=== PATIENT | male | born 1970 | race Caucasian/White ===

== ENCOUNTER 2024-07-13 09:43 | Inpatient (IN) | payer BC ==
[~2024-07-13] VITALS: Ht 185.4 cm; Wt 70.3 kg
[2024-07-13] MEDS ORDERED: CALCITRIOL0.5 MCG (10:06)
[2024-07-13 10:07] LABS: BASOPHILS # (AUTO) 0.1 (0.0-0.1); BASOPHILS % 0.9 % (0.0-1.0); EOSINOPHILS # (AUTO) 0.2 (0.0-0.4); EOSINOPHILS % 2.5 % (0.0-6.0); HEMATOCRIT 47.1 % (38.2-49.6); HEMOGLOBIN 15.5 g/dL (14.0-18.0); LYMPHOCYTES # (AUTO) 2.3 (1.0-3.2); MEAN CORPUSCULAR HEMOGLOBIN 32.4 pg (28-32); MEAN CORPUSCULAR HGB CONC 32.9 g/dL (31-35); MEAN CORPUSCULAR VOLUME 98.3 fL (81-99); MONOCYTES # (AUTO) 0.8 (0.2-0.8); MONOCYTES % 7.7 % (4.4-11.3); NEUTROPHILS # (AUTO) 6.3 (2.1-6.9); NEUTROPHILS % 64.7 % (38.7-80.0); PLATELET COUNT 269 x10e3/uL (140-360); RED BLOOD COUNT 4.79 x10e6/uL (4.3-5.7); RED CELL DISTRIBUTION WIDTH 13.5 % (11.7-14.4); WHITE BLOOD COUNT 9.69 x10e3/uL (4.8-10.8)
[2024-07-13 10:20] LABS: INR 1.04; PROTHROMBIN TIME 14.2 seconds (11.9-14.5)
[2024-07-13 10:23] LABS: PARTIAL THROMBOPLASTIN TIME 29.8 seconds (23.8-35.5)
[2024-07-13] MEDS: SODIUM CHLORIDE 0.9% 1000ML 1,000 ML IV STA (10:28)
[2024-07-13] MEDS: METHYLPREDNISOLONE SOD SUCC 125 MG/2ML VIAL IV STA (10:29)
[2024-07-13] MEDS: KETOROLAC TROMETHAMINE 30 MG/ML VIAL IV STA (10:30)
[2024-07-13] MEDS: DIAZEPAM INJ 5 MG/ML 2 ML IV ONE (10:30)
[2024-07-13 10:42] LABS: ALBUMIN 3.3 g/dL (3.5-5.0); ALBUMIN/GLOBULIN RATIO 0.9 (0.8-2.0); ANION GAP 23.4 mmol/L (8-16); CREATININE, SERUM 0.86 mg/dL (0.72-1.25); MAGNESIUM 1.2 MG/DL (1.3-2.1); TOTAL PROTEIN 6.9 g/dL (6.5-8.1)
[2024-07-13 10:43] LABS: POTASSIUM 3.4 mmol/L (3.5-5.1)
[2024-07-13 10:45] LABS: CALCIUM 6.2 mg/dL (8.4-10.2)
[2024-07-13 10:48] LABS: TROPONIN I 0.015 ng/mL (0-0.300)
[2024-07-13] MEDS: MAGNESIUM SULFATE 2GM/50ML 50 ML IV ONE (11:09)
[2024-07-13] MEDS: CALCIUM GLUC 1 G/50 ML NACL 50 ML IV SCH (11:12)
[2024-07-13] MEDS: SODIUM CHLORIDE 0.9% 1000ML 1,000 ML IV SCH (12:24)
[2024-07-13] MEDS: ONDANSETRON HCL INJ 2MG/ML 2ML 2 MG/ML VIAL IV PRN (12:29)
[2024-07-13] MEDS: LORAZEPAM INJ 2 MG/ML VIAL IV PRN (12:29)
[2024-07-13 13:59] LABS: CLARITY,URINE CLEAR (CLEAR); COLOR,URINE YELLOW (YELLOW); GLUCOSE, URINE NEGATIVE (NEGATIVE); KETONES,URINE 1+ (NEGATIVE); LEUKOCYTE ESTERASE ,URINE NEGATIVE (NEGATIVE); NITRITE,URINE NEGATIVE (NEGATIVE); PH,URINE 6 (5 - 7); PROTEIN,URINE DIPSTICK NEGATIVE (NEGATIVE)
[2024-07-13 14:00] LABS: BILIRUBIN,URINE NEGATIVE (NEGATIVE); URINE UROBILINOGEN 0.2 mg/dL (0.2 - 1)
[2024-07-13 14:05] LABS: BACTERIA,URINE FEW /HPF; EPITHELIAL CELLS,URINE FEW /LPF; RBC,URINE 0-5 /HPF (0-5)
[2024-07-13] MEDS: CALCIUM CARBONATE 500 MG CHEWABLE TABS PO SCH (17:00)
[2024-07-13 19:16] VITALS: PULSE 79; RESP 18; TEMP 98.1
[2024-07-13 20:05] VITALS: BP 160/94; PULSE 77; RESP 20; TEMP 97.9; O2SAT 97
[2024-07-13 21:00] VITALS: BP 160/94; PULSE 77; RESP 20; TEMP 97.9; O2SAT 97
[2024-07-14] VITALS: BP 143/74; PULSE 87; RESP 20; TEMP 97.6; O2SAT 97
[2024-07-14 03:41] LABS: TROPONIN I 0.011 ng/mL (0-0.300)
[2024-07-14 04:00] VITALS: BP 126/86; PULSE 70; RESP 20; TEMP 98.1; O2SAT 99
[2024-07-14 05:23] LABS: BASOPHILS % 0.4 % (0.0-1.0); EOSINOPHILS % 0.2 % (0.0-6.0); HEMATOCRIT 42.8 % (38.2-49.6); LYMPHOCYTES % 17.5 % (18.0-39.1); MEAN CORPUSCULAR HEMOGLOBIN 32.2 pg (28-32); MEAN CORPUSCULAR HGB CONC 32.7 g/dL (31-35); MEAN CORPUSCULAR VOLUME 98.4 fL (81-99); NEUTROPHILS # (AUTO) 8.3 (2.1-6.9); NEUTROPHILS % 72.6 % (38.7-80.0); PLATELET COUNT 244 x10e3/uL (140-360); RED BLOOD COUNT 4.35 x10e6/uL (4.3-5.7); RED CELL DISTRIBUTION WIDTH 13.4 % (11.7-14.4); WHITE BLOOD COUNT 11.39 x10e3/uL (4.8-10.8)
[2024-07-14 06:01] LABS: ALBUMIN 2.5 g/dL (3.5-5.0); ALBUMIN/GLOBULIN RATIO 0.9 (0.8-2.0); ANION GAP 14.8 mmol/L (8-16); BILIRUBIN,TOTAL 0.4 mg/dL (0.2-1.2); CREATININE, SERUM 0.84 mg/dL (0.72-1.25); MAGNESIUM 1.4 MG/DL (1.3-2.1); TOTAL PROTEIN 5.3 g/dL (6.5-8.1)
[2024-07-14 06:10] LABS: CALCIUM 5.4 mg/dL (8.4-10.2); POTASSIUM 2.8 mmol/L (3.5-5.1)
[2024-07-14 08:12] VITALS: BP 136/74; PULSE 69; RESP 18; TEMP 97.9; O2SAT 99
[2024-07-14 08:15] VITALS: BP 126/52; PULSE 78; RESP 18; TEMP 99.5; O2SAT 97
[2024-07-14] MEDS: MULTIVITAMINS/MINERALS TAB PO SCH (08:48)
[2024-07-14 10:53] LABS: TROPONIN I 0.002 ng/mL (0-0.300)
[2024-07-14 11:53] LABS: ABG HCO3 24 mmol/L (22-26); ABG PCO2 42 mmHg (35-45); ABG PH 7.37 (7.35-7.45); ABG PO2 44 mmHg (80-105); ABG TCO2 26
[2024-07-14] MEDS: CALCITRIOL 0.25 MCG CAP PO SCH (12:11)
[2024-07-14] MEDS: POTASSIUM CHLORIDE 20 MEQ TAB CR PO ONE (12:11)
[2024-07-14 13:04] VITALS: BP 140/88; PULSE 68; RESP 18; TEMP 98; O2SAT 100
[2024-07-14] MEDS: CALCIUM GLUC 1 G/50 ML NACL 50 ML IV SCH (14:00)
[2024-07-14] MEDS: POTASSIUM CHLORIDE 20MEQ/100ML 100 ML IV SCH (14:11)
[2024-07-14 20:00] VITALS: BP 144/88; PULSE 64; RESP 16; TEMP 97.9; O2SAT 97
[2024-07-15] VITALS (8 sets, daily range): BP systolic 128–174; BP diastolic 78–99; PULSE 52–71; RESP 17–20; TEMP 97.6–98.3; O2SAT 93–97
[2024-07-15 05:09] LABS: BASOPHILS # (AUTO) 0.1 (0.0-0.1); BASOPHILS % 0.7 % (0.0-1.0); EOSINOPHILS # (AUTO) 0.3 (0.0-0.4); EOSINOPHILS % 3.1 % (0.0-6.0); HEMATOCRIT 38.7 % (38.2-49.6); HEMOGLOBIN 13.1 g/dL (14.0-18.0); LYMPHOCYTES # (AUTO) 2.4 (1.0-3.2); LYMPHOCYTES % 29.2 % (18.0-39.1); MEAN CORPUSCULAR HEMOGLOBIN 32.1 pg (28-32); MEAN CORPUSCULAR HGB CONC 33.9 g/dL (31-35); MEAN CORPUSCULAR VOLUME 94.9 fL (81-99); MONOCYTES # (AUTO) 0.7 (0.2-0.8); MONOCYTES % 8.7 % (4.4-11.3); NEUTROPHILS # (AUTO) 4.7 (2.1-6.9); NEUTROPHILS % 58.1 % (38.7-80.0); PLATELET COUNT 238 x10e3/uL (140-360); RED BLOOD COUNT 4.08 x10e6/uL (4.3-5.7); RED CELL DISTRIBUTION WIDTH 14.1 % (11.7-14.4); WHITE BLOOD COUNT 8.15 x10e3/uL (4.8-10.8)
[2024-07-15 05:43] LABS: ALBUMIN 2.6 g/dL (3.5-5.0); ANION GAP 15.2 mmol/L (8-16); BILIRUBIN,TOTAL 0.4 mg/dL (0.2-1.2); CREATININE, SERUM 0.84 mg/dL (0.72-1.25); TOTAL PROTEIN 5.2 g/dL (6.5-8.1)
[2024-07-15 05:49] LABS: POTASSIUM 3.2 mmol/L (3.5-5.1)
[2024-07-15 05:58] LABS: CALCIUM 5.5 mg/dL (8.4-10.2)
[2024-07-15] MEDS: POTASSIUM CHLORIDE 20 MEQ TAB CR PO ONE (12:46)
[2024-07-15] MEDS: SODIUM CHLORIDE 0.9% IV SCH (14:48)
[2024-07-15] MEDS: CALCIUM GLUCONATE IV SCH (14:48)
[2024-07-15] MEDS: CALCIUM CARBONATE 500 MG CHEWABLE TABS PO SCH (14:48)
[2024-07-16 04:00] VITALS: BP 140/86; PULSE 60; RESP 18; TEMP 98.1; O2SAT 97
[2024-07-16 05:59] LABS: BASOPHILS # (AUTO) 0.1 (0.0-0.1); BASOPHILS % 0.6 % (0.0-1.0); EOSINOPHILS # (AUTO) 0.3 (0.0-0.4); EOSINOPHILS % 2.8 % (0.0-6.0); HEMATOCRIT 39.8 % (38.2-49.6); HEMOGLOBIN 13.5 g/dL (14.0-18.0); LYMPHOCYTES % 21.1 % (18.0-39.1); MEAN CORPUSCULAR HGB CONC 33.9 g/dL (31-35); MEAN CORPUSCULAR VOLUME 94.3 fL (81-99); MONOCYTES # (AUTO) 0.8 (0.2-0.8); MONOCYTES % 8.9 % (4.4-11.3); NEUTROPHILS # (AUTO) 6.3 (2.1-6.9); NEUTROPHILS % 66.3 % (38.7-80.0); PLATELET COUNT 262 x10e3/uL (140-360); RED BLOOD COUNT 4.22 x10e6/uL (4.3-5.7); RED CELL DISTRIBUTION WIDTH 14.4 % (11.7-14.4); WHITE BLOOD COUNT 9.49 x10e3/uL (4.8-10.8)
[2024-07-16 06:21] LABS: ANION GAP 15.3 mmol/L (8-16); CREATININE, SERUM 0.81 mg/dL (0.72-1.25)
[2024-07-16 06:26] LABS: POTASSIUM 3.3 mmol/L (3.5-5.1)
[2024-07-16 06:28] LABS: CALCIUM 6.3 mg/dL (8.4-10.2)
[2024-07-16 08:00] VITALS: BP 140/86; PULSE 60; RESP 18; TEMP 98.1; O2SAT 97
[2024-07-16 08:52] VITALS: BP 158/88; PULSE 53; RESP 20; TEMP 98.1; O2SAT 98
[2024-07-16] MEDS: SODIUM CHLORIDE 0.9% IV SCH ×2 (11:18→18:15)
[2024-07-16] MEDS: CALCIUM GLUCONATE IV SCH ×2 (11:18→18:15)
[2024-07-16 11:59] VITALS: BP 172/91; PULSE 46; RESP 20; TEMP 97.6; O2SAT 98
[2024-07-16 13:10] LABS: CALCIUM 8.4 mg/dL (8.7-10.2)
[2024-07-16] MEDS ORDERED: POTASSIUM CHLORIDE 20 MEQ TAB CR PO STA (15:32)
[2024-07-16 16:12] VITALS: BP 169/92; PULSE 84; RESP 18; TEMP 97.7; O2SAT 98
[2024-07-16] MEDS: POTASSIUM BICARBONATE/CIT AC 20 MEQ TABLET.EFF PO ONE (16:15)
[2024-07-16] MEDS: MAGNESIUM SULFATE 2GM/50ML 50 ML IV ONE (16:15)
[2024-07-16 16:55] LABS: CORONAVIRUS COVID-19 AG NEGATIVE (NEGATIVE); INFLUENZA A AG NEGATIVE (NEGATIVE); INFLUENZA B AG NEGATIVE (NEGATIVE)
[2024-07-16 20:00] VITALS: BP 151/87; PULSE 51; RESP 16; TEMP 97.4; O2SAT 95
[2024-07-16] MEDS: CALCIUM CARBONATE 500 MG CHEWABLE TABS PO SCH (21:41)
[2024-07-16] MEDS: CALCITRIOL 0.25 MCG CAP PO SCH (21:41)
[2024-07-17] VITALS: BP_SYST 137; BP_SYST 142; BP_DIAS 60; BP_DIAS 78; PULSE 55; PULSE 89; RESP 18; RESP 19; TEMP 97.4; TEMP 98.1; O2SAT 94; O2SAT 96
[2024-07-17 04:00] VITALS: BP 144/75; PULSE 52; RESP 18; TEMP 98.7; O2SAT 94
[2024-07-17 06:26] LABS: ANION GAP 16.3 mmol/L (8-16); CREATININE, SERUM 0.79 mg/dL (0.72-1.25); MAGNESIUM 1.3 MG/DL (1.3-2.1)
[2024-07-17 06:27] LABS: POTASSIUM 3.3 mmol/L (3.5-5.1)
[2024-07-17 06:29] LABS: CALCIUM 6.8 mg/dL (8.4-10.2)
[2024-07-17 07:55] VITALS: BP 144/75; PULSE 52; RESP 18; TEMP 98.7; O2SAT 94
[2024-07-17 08:19] VITALS: BP 177/90; PULSE 57; RESP 17; TEMP 98.4; O2SAT 95
[2024-07-17] MEDS: POTASSIUM CHLORIDE 20 MEQ TAB CR PO ONE (11:13)
[2024-07-17 12:08] VITALS: BP 174/90; PULSE 61; RESP 17; TEMP 98; O2SAT 97
[2024-07-17] MEDS: HYDRALAZINE HCL 20 MG/ML VIAL IV PRN (13:17)
[2024-07-17] MEDS: SODIUM CHLORIDE 0.9% IV SCH (18:52)
[2024-07-17] MEDS: CALCIUM GLUCONATE IV SCH (18:52)
[2024-07-17 23:09] VITALS: BP 160/92; PULSE 57; RESP 18; TEMP 98.4; O2SAT 100
[2024-07-18 05:39] VITALS: BP 145/83; PULSE 60; RESP 20; TEMP 98.4; O2SAT 96
[2024-07-18 06:23] LABS: ANION GAP 18.1 mmol/L (8-16); CALCIUM 7.3 mg/dL (8.4-10.2); CREATININE, SERUM 0.75 mg/dL (0.72-1.25); MAGNESIUM 1.2 MG/DL (1.3-2.1)
[2024-07-18 06:26] LABS: POTASSIUM 3.1 mmol/L (3.5-5.1)
[2024-07-18 07:15] LABS: ABG HCO3 24 mmol/L (22-26); ABG PCO2 36 mmHg (35-45); ABG PH 7.42 (7.35-7.45); ABG PO2 97 mmHg (80-105); ABG TCO2 25
[2024-07-18 07:15] LABS: ABG HCO3 25 mmol/L (22-26); ABG PCO2 38 mmHg (35-45); ABG PH 7.43 (7.35-7.45); ABG PO2 61 mmHg (80-105); ABG TCO2 27
[2024-07-18 08:51] VITALS: BP 158/82; PULSE 63; RESP 18; TEMP 98.3; O2SAT 98
[2024-07-18 10:51] VITALS: BP 158/82; PULSE 63; RESP 18; TEMP 98.3; O2SAT 98
[2024-07-18 11:52] VITALS: BP 175/87; PULSE 56; RESP 17; TEMP 98.2; O2SAT 96
[2024-07-18] MEDS ORDERED: CALCITRIOL0.5 MCG PO (12:41)
[2024-07-18] MEDS ORDERED: MAG-OXIDE200 MG PO (12:41)
[2024-07-18] MEDS ORDERED: CALCIUM CITRAT250 MG PO (12:41)
[2024-07-19 07:34] LABS: ABG HCO3 26 mmol/L (22-26); ABG PCO2 40 mmHg (35-45); ABG PH 7.43 (7.35-7.45); ABG PO2 103 mmHg (80-105); ABG TCO2 27
== END 2024-07-18 14:00 | disposition home or self-care (01) | DRG 645 ==
LOC: ER 09:50 → ERHOLD 11:34 → MED/SURG 19:54
PROVIDERS: ADMIT Internal Medicine; ATTEND Internal Medicine
PROC: 4A033R1 Measurement of Arterial Saturation, Peripheral, Percutaneous Approach (ICD-10-PCS; principal; 2024-07-13)
PROC: 4A033R1 Measurement of Arterial Saturation, Peripheral, Percutaneous Approach (ICD-10-PCS; 2024-07-16)
PROC: 4A033R1 Measurement of Arterial Saturation, Peripheral, Percutaneous Approach (ICD-10-PCS; 2024-07-17)
PROC: 4A033R1 Measurement of Arterial Saturation, Peripheral, Percutaneous Approach (ICD-10-PCS; 2024-07-18)
DX: E20.9 Hypoparathyroidism, unspecified (principal); E87.6 Hypokalemia; R25.2 Cramp and spasm; L40.9 Psoriasis, unspecified; R74.8 Abnormal levels of other serum enzymes; F17.200 Nicotine dependence, unspecified, uncomplicated; F10.10 Alcohol abuse, uncomplicated; Z11.52 Encounter for screening for COVID-19; Z71.81 Spiritual or religious counseling; Z79.899 Other long term (current) drug therapy
CPT/HCPCS: 36415; 71045; 80048; 80053; 81001; 82550; 82805; 83519; 83735; 83970; 84100; 84484; 85025; 85610; 85730; 93005; 99284; J0360; J0612; J1885; J2060; J2405; J2919; J3360; J3475; J3480; J7030; J7040

== ENCOUNTER 2024-08-24 09:54 | Inpatient (IN) | payer BC ==
[~2024-08-24] VITALS: Ht 185.4 cm; Wt 70.3 kg
[~2024-08-24 09:54] MED LIST: CALCITRIOL0.5 MCG; CALCITRIOL0.5 MCG PO; CALCIUM CITRAT250 MG PO; MAG-OXIDE200 MG PO
[2024-08-24 10:57] LABS: BASOPHILS # (AUTO) 0.1 (0.0-0.1); BASOPHILS % 0.7 % (0.0-1.0); EOSINOPHILS # (AUTO) 0.3 (0.0-0.4); HEMATOCRIT 45.8 % (38.2-49.6); HEMOGLOBIN 15.5 g/dL (14.0-18.0); LYMPHOCYTES # (AUTO) 2.5 (1.0-3.2); LYMPHOCYTES % 25.2 % (18.0-39.1); MEAN CORPUSCULAR HEMOGLOBIN 31.5 pg (28-32); MEAN CORPUSCULAR HGB CONC 33.8 g/dL (31-35); MEAN CORPUSCULAR VOLUME 93.1 fL (81-99); MONOCYTES # (AUTO) 0.8 (0.2-0.8); MONOCYTES % 8.5 % (4.4-11.3); NEUTROPHILS # (AUTO) 6.1 (2.1-6.9); NEUTROPHILS % 62.3 % (38.7-80.0); PLATELET COUNT 323 x10e3/uL (140-360); RED BLOOD COUNT 4.92 x10e6/uL (4.3-5.7); RED CELL DISTRIBUTION WIDTH 13.4 % (11.7-14.4); WHITE BLOOD COUNT 9.85 x10e3/uL (4.8-10.8)
[2024-08-24 11:05] LABS: INR 0.83; PROTHROMBIN TIME 11.9 seconds (11.9-14.5)
[2024-08-24 11:07] LABS: PARTIAL THROMBOPLASTIN TIME 28.3 seconds (23.8-35.5)
[2024-08-24 11:16] LABS: ALBUMIN 3.7 g/dL (3.5-5.0); ANION GAP 17.5 mmol/L (8-16); BILIRUBIN,TOTAL 0.5 mg/dL (0.2-1.2); CREATININE, SERUM 2.45 mg/dL (0.72-1.25); MAGNESIUM 1.8 MG/DL (1.3-2.1); TOTAL PROTEIN 7.4 g/dL (6.5-8.1)
[2024-08-24 11:21] LABS: CALCIUM 13.2 mg/dL (8.4-10.2); POTASSIUM 2.5 mmol/L (3.5-5.1)
[2024-08-24] MEDS: SODIUM CHLORIDE 0.9% 1000ML 1,000 ML IV STA (11:31)
[2024-08-24] MEDS: POTASSIUM CHLORIDE 10MEQ/100ML 300 ML IV ONE (11:45)
[2024-08-24] MEDS: POTASSIUM CHLORIDE 20 MEQ TAB CR PO STA (11:45)
[2024-08-24 11:58] LABS: THYROID STIMULATING HORMONE 1.828 uIU/mL (0.350-4.940)
[2024-08-24] MEDS ORDERED: ONDANSETRON HCL INJ 2MG/ML 2ML 2 MG/ML VIAL IV PRN (12:00)
[2024-08-24] MEDS: SODIUM CHLORIDE 0.9% 1000ML 1,000 ML IV SCH (14:47)
[2024-08-24 16:00] VITALS: PULSE 71; RESP 16; TEMP 98.1
[2024-08-24 20:27] VITALS: BP 154/86; PULSE 56; RESP 17; TEMP 98; O2SAT 98
[2024-08-25] VITALS (8 sets, daily range): BP systolic 142–151; BP diastolic 78–89; PULSE 51–60; RESP 16–20; TEMP 97.3–99; O2SAT 98–100
[2024-08-25 07:24] LABS: BASOPHILS # (AUTO) 0.1 (0.0-0.1); EOSINOPHILS # (AUTO) 0.6 (0.0-0.4); EOSINOPHILS % 7.7 % (0.0-6.0); HEMATOCRIT 41.3 % (38.2-49.6); LYMPHOCYTES % 39.1 % (18.0-39.1); MEAN CORPUSCULAR HEMOGLOBIN 31.8 pg (28-32); MEAN CORPUSCULAR HGB CONC 33.9 g/dL (31-35); MEAN CORPUSCULAR VOLUME 93.9 fL (81-99); MONOCYTES # (AUTO) 0.6 (0.2-0.8); MONOCYTES % 8.4 % (4.4-11.3); NEUTROPHILS # (AUTO) 3.3 (2.1-6.9); NEUTROPHILS % 43.5 % (38.7-80.0); PLATELET COUNT 278 x10e3/uL (140-360); RED CELL DISTRIBUTION WIDTH 13.5 % (11.7-14.4); WHITE BLOOD COUNT 7.65 x10e3/uL (4.8-10.8)
[2024-08-25 07:50] LABS: ALBUMIN 2.9 g/dL (3.5-5.0); BILIRUBIN,TOTAL 0.7 mg/dL (0.2-1.2); CALCIUM 10.7 mg/dL (8.4-10.2); CREATININE, SERUM 2.04 mg/dL (0.72-1.25); TOTAL PROTEIN 5.9 g/dL (6.5-8.1)
[2024-08-25 08:34] LABS: ABG HCO3 37 mmol/L (22-26); ABG PCO2 60 mmHg (35-45); ABG PO2 31 mmHg (80-105); ABG TCO2 39
[2024-08-25] MEDS: POTASSIUM CHLORIDE 20 MEQ TAB CR PO SCH (11:27)
[2024-08-25 15:37] LABS: CALCIUM 12.9 mg/dL (8.7-10.2)
[2024-08-25] MEDS: CALCITRIOL 0.25 MCG CAP PO SCH (15:56)
[2024-08-25] MEDS: FAMOTIDINE 20 MG TAB PO SCH (21:11)
[2024-08-26] VITALS: BP 148/81; PULSE 54; RESP 17; TEMP 98.1; O2SAT 99
[2024-08-26 04:00] VITALS: BP 158/82; PULSE 61; RESP 18; TEMP 97.6; O2SAT 98
[2024-08-26 06:39] LABS: ANION GAP 11.1 mmol/L (8-16); CALCIUM 10.1 mg/dL (8.4-10.2); CREATININE, SERUM 1.77 mg/dL (0.72-1.25); PHOSPHORUS 2.7 MG/DL (2.3-4.7)
[2024-08-26 06:40] LABS: POTASSIUM 3.1 mmol/L (3.5-5.1)
[2024-08-26 08:00] VITALS: BP 159/81; PULSE 51; RESP 18; TEMP 97.5; O2SAT 100
[2024-08-26 08:40] VITALS: BP 159/81; PULSE 51; RESP 18; TEMP 97.5; O2SAT 100
[2024-08-26 13:07] VITALS: BP 154/85; PULSE 50; RESP 18; TEMP 97.5; O2SAT 100
[2024-08-26 16:29] VITALS: BP 171/76; PULSE 51; RESP 18; TEMP 98.1; O2SAT 100
== END 2024-08-26 18:30 | disposition home or self-care (01) | DRG 641 ==
LOC: ER 10:25 → ERHOLD 11:56 → MED/SURG3 16:58
PROVIDERS: ADMIT Internal Medicine; ATTEND Internal Medicine
PROC: 4A033R1 Measurement of Arterial Saturation, Peripheral, Percutaneous Approach (ICD-10-PCS; principal; 2024-08-24)
DX: E87.6 Hypokalemia (principal); N17.9 Acute kidney failure, unspecified; E87.3 Alkalosis; E20.9 Hypoparathyroidism, unspecified; T50.3X5A Adverse effect of electrolytic, caloric and water-balance agents, initial encounter; F17.200 Nicotine dependence, unspecified, uncomplicated
CPT/HCPCS: 36415; 36568; 71045; 76770; 80048; 80053; 82805; 83735; 83970; 84100; 84443; 85025; 85610; 85730; 93005; 99284; J3480; J7030